=== PATIENT | female | born 1980 | race Caucasian/White ===

== ENCOUNTER 2022-10-10 08:07 | Outpatient (CLI) | payer BC, SELFPAY | END 2022-10-10 08:08 | disposition home or self-care (01) | LOC: NFLDREF 10-11 14:43 | PROVIDERS: PCP Physician Assistant Medical; Referring Provider Physician Assistant Medical; Visit Provider Physician Assistant Medical | DX: E03.8 Other specified hypothyroidism (principal); F32.A Depression, unspecified; F41.9 Anxiety disorder, unspecified; I10 Essential (primary) hypertension; R73.01 Impaired fasting glucose; Z30.42 Encounter for surveillance of injectable contraceptive | CPT/HCPCS: 80053; 80061; 84439; 84443 ==

== ENCOUNTER 2023-09-15 14:59 | Outpatient (CLI) | payer BC, SELFPAY | END 2023-09-15 15:00 | disposition home or self-care (01) | PROVIDERS: PCP Physician Assistant Medical; Visit Provider Physician Assistant Medical | DX: E03.8 Other specified hypothyroidism (principal); I10 Essential (primary) hypertension; R73.03 Prediabetes | CPT/HCPCS: 80053; 84439; 84443 ==

== ENCOUNTER 2023-11-25 07:35 | Outpatient (CLI) | payer BC, SELFPAY | END 2023-11-25 07:36 | disposition home or self-care (01) | LOC: NFLDREF 11-28 08:03 | PROVIDERS: PCP Physician Assistant Medical; Referring Provider Physician Assistant Medical; Visit Provider Physician Assistant Medical | DX: E03.8 Other specified hypothyroidism (principal) | CPT/HCPCS: 84439; 84443 ==

== ENCOUNTER 2024-03-02 09:18 | Outpatient (CLI) | payer BC, SELFPAY | END 2024-03-02 09:19 | disposition home or self-care (01) | LOC: NFLDREF 03-06 01:00 | PROVIDERS: PCP Physician Assistant Medical; Referring Provider Physician Assistant Medical; Visit Provider Physician Assistant Medical | DX: E03.8 Other specified hypothyroidism (principal) | CPT/HCPCS: 84439; 84443 ==

== ENCOUNTER 2024-05-31 09:47 | Outpatient (CLI) | payer BC, SELFPAY | END 2024-05-31 09:48 | disposition home or self-care (01) | PROVIDERS: PCP Physician Assistant Medical; Visit Provider Physician Assistant Medical | DX: E03.8 Other specified hypothyroidism (principal); I10 Essential (primary) hypertension; E11.9 Type 2 diabetes mellitus without complications; R53.83 Other fatigue; Z13.21 Encounter for screening for nutritional disorder; Z13.0 Encounter for screening for diseases of the blood and blood-forming organs and certain disorders involving the immune mechanism; Z13.220 Encounter for screening for lipoid disorders | CPT/HCPCS: 80053; 80061; 82306; 82607; 82728; 84443 ==